=== PATIENT | male | born 1975 | race Caucasian/White ===

== ENCOUNTER 2018-04-11 11:04 | Emergency (ER) | payer BC ==
[2018-04-11 11:12] VITALS: BP 131/76
--- NOTE | 2018-04-11 11:26 | ER Document Report ---
ED General - General Chief Complaint: Rectal Pain Stated Complaint: POSSIBLE HEMORRHOID Time Seen by Provider: 04/11/18 11:14 Notes: 42-year-old male complaining of a 2-week history of rectal pain that is relieved by lidocaine topical treatment. Denies any blood, complains of pain with defecation, denies any dysuria, denies any abdominal pain or vomiting. States he has been previously diagnosed with hemorrhoids during colonoscopy several years ago. TRAVEL OUTSIDE OF THE [place] IN LAST 30 DAYS: No - Related Data Allergies/Adverse Reactions: No Known Allergies Allergy (Unverified 05/18/11 13:30) Past Medical History - General Information source: Patient - Social History Smoking Status: Never Smoker Chew tobacco use (# tins/day): No Frequency of alcohol use: None Drug Abuse: Marijuana Family History: Arthritis, CVA, DM, Hyperlipidemia, Hypertension, Malignancy Patient has suicidal ideation: No Patient has homicidal ideation: No Renal/ Medical History: Denies: Hx Peritoneal Dialysis Musculoskeletal Medical History: Reports Hx Musculoskeletal Trauma Traumatic Medical History: Reports: Hx Fractures - Clavicle and wrist Past Surgical History: Reports: Hx Oral Surgery - [place] teeth - Immunizations Immunizations up to date: Yes Hx Diphtheria, Pertussis, Tetanus Vaccination: Yes - 12/13/2015 Review of Systems - Review of Systems Constitutional: No symptoms reported Cardiovascular: No symptoms reported Respiratory: No symptoms reported Gastrointestinal: See HPI, Other - rectal pain -: Yes All other systems reviewed and negative Physical Exam - Vital signs Vitals: Temp Pulse Resp BP Pulse Ox 98.4 F 69 14 131/76 H 96 04/11/18 11:11 04/11/18 11:11 04/11/18 11:11 04/11/18 11:11 04/11/18 11:11 Interpretation: Normal - Notes Notes: GENERAL: Alert, interacts well. No acute distress. HEAD: Normocephalic, atraumatic EYES: Pupils equal, round and reactive to light, extraocular movements intact. ENT: Oral mucosa moist, tongue midline. NECK: Full range of motion, supple, trachea midline. LUNGS: Clear to auscultation bilaterally, no wheezes, rales or rhonchi, no respiratory distress. HEART: Regular rate and rhythm, no murmurs, gallops, rubs. ABDOMEN: Soft, nontender, nondistended, bowel sounds present in all 4 quadrants. RECTAL: Tenderness to palpation along the rectum, no lesions, no hemorrhoids, no fissures, there is a small skin tag around the 5 o'clock position. No evidence of abscess or infection. EXTREMITIES: Moves all 4 extremities spontaneously. NEUROLOGICAL: Alert, normal speech. PSYCH: Normal mood, normal affect. SKIN: Warm, Dry, normal turgor, no rashes or lesions noted. Course - Re-evaluation Re-evalutation: 04/11/18 11:25 Symptoms not consistent with prostatitis. No evidence of hemorrhoid, no evidence of infection. Encouraged patient to follow-up with GI as an outpatient given how tender his rectum is without any signs of infection or explanation for the pain. Prescribed Nupercainal suppositories and asked him to return for vomiting fever abdominal pain blood or new or concerning symptoms. - Vital Signs Vital signs: Temp Pulse Resp BP Pulse Ox 98.4 F 69 14 131/76 H 96 04/11/18 11:11 04/11/18 11:11 04/11/18 11:11 04/11/18 11:11 04/11/18 11:11 Discharge - Discharge Clinical Impression: Proctodynia Condition: Stable Disposition: HOME, SELF-CARE Additional Instructions: On your rectal examination I did not find any hemorrhoids, herpes, signs of infection or tears. I have prescribed a numbing medication called Nupercaine. This is a suppository that goes in your rectum that should help with the pain. I do not have a cause for your pain today. Please follow-up with GI to have them do further examination of the inside of your rectum to see if they can find a cause for your pain. Please dissolve 1 scoop of MiraLAX in a glass of water once a day to treat constipation. You may increase to twice a day if needed to create soft bowel movements and you may decrease to every other day if you develop diarrhea. Please buy Nupercainal or dibucaine suppositories [id number]. You do not need a prescription for these. Please follow-up with GI as an outpatient. Return here for bleeding, fevers, increasing pain or vomiting. Prescriptions: Dibucaine [Nupercainal] 28.4 gm RC QIDP PRN #1 oint...g. PRN Reason: Referrals: TAD DOUGLAS MD [ACTIVE STAFF] - Follow up as needed
== END 2018-04-11 11:30 | disposition home or self-care (01) ==
LOC: ER 11:04
DX: K62.89 Other specified diseases of anus and rectum (principal)
CPT/HCPCS: 99283